=== PATIENT | male | born 1980 | race Two or more races ===

== ENCOUNTER 2024-06-06 15:30 | Emergency (ER) | payer OTHER ==
[~2024-06-06] VITALS: Ht 177.8 cm; Wt 90.7 kg
[2024-06-06] MEDS ORDERED: CEFTRIAXONE SODIUM 1,000 MG VIAL ONE (16:54)
[2024-06-06] MEDS ORDERED: CEFTRIAXONE SODIUM 1,000 MG VIAL IM ONE (17:00)
[2024-06-06 18:35] LABS: HEMOGLOBIN 16.3 g/dL (13-16.00); MEAN CELL VOLUME 85.3 fL (80.0-100.00); PLATELET COUNT 283 K/uL (150-450); RED BLOOD COUNT 5.62 M/uL (4.00-6.00); RED CELL DISTRIBUTION WIDTH 14.3 % (11.5-14.5)
[2024-06-06 18:46] LABS: ERYTHROCYTE SEDIMENTATION RATE 11 mm/hr
[2024-06-06 18:57] LABS: INR 0.98; PARTIAL THROMBOPLASTIN TIME 27.3 SECONDS (22.0-34.0); PROTHROMBIN TIME 10.7 SECONDS (9.0-11.5)
[2024-06-06 18:59] LABS: ALBUMIN 4.3 gm/dL (3.4-5.0); BILIRUBIN TOTAL 0.51 mg/dL (0.3-1.2); CALCIUM 9.7 mg/dL (8.5-10.1); CREATININE SERUM 1.02 mg/dL (0.70-1.30); GFR 78.63; GLOBULINA 3.6 G/DL (2.4-3.5); POTASSIUM 4.08 mEq/L (3.5-5.1); TOTAL PROTEIN 7.9 gm/dL (6.4-8.2)
[2024-06-06 19:07] LABS: C-REACTIVE PROTEIN 1.05 MG/DL (0.00-0.29)
[2024-06-06] MEDS ORDERED: PEPCID AC20 MG PO (19:52)
[2024-06-06] MEDS ORDERED: CEPHALEXIN750 MG PO (19:52)
== END 2024-06-06 20:03 | disposition home or self-care (01) ==
LOC: ER 15:32
PROVIDERS: General Practice
DX: L03.116 Cellulitis of left lower limb (principal)